=== PATIENT | male | born 1935 | race Caucasian/White ===

== ENCOUNTER 2022-07-03 21:06 | Emergency (ER) | payer OTHER, BC ==
[~2022-07-03] VITALS: Ht 182.9 cm; Wt 96.6 kg
[2022-07-03] MEDS ORDERED: TRAMADOL HCL50 MG PO (23:13)
== END 2022-07-03 23:35 | disposition home or self-care (01) ==
LOC: ED 21:06
DX: S42.031A Displaced fracture of lateral end of right clavicle, initial encounter for closed fracture (principal); S00.01XA Abrasion of scalp, initial encounter; W01.0XXA Fall on same level from slipping, tripping and stumbling without subsequent striking against object, initial encounter; Y93.E1 Activity, personal bathing and showering
CPT/HCPCS: 70450; 72125; 73030; 99284-25; A9270